=== PATIENT | female | born 1955 | race Caucasian/White ===

== ENCOUNTER 2016-09-20 12:02 | Outpatient (CLI) | payer OTHER | END 2016-09-20 12:03 | disposition home or self-care (01) | DX: J42 Unspecified chronic bronchitis (principal) ==

== ENCOUNTER 2016-11-22 10:51 | Outpatient (CLI) | payer OTHER | END 2016-11-22 10:52 | disposition home or self-care (01) | DX: R03.0 Elevated blood-pressure reading, without diagnosis of hypertension (principal); E78.2 Mixed hyperlipidemia ==

== ENCOUNTER 2017-04-09 13:35 | Outpatient (CLI) | payer OTHER ==
--- NOTE | 2017-04-10 10:07 | XRAY Report ---
CHEST, TWO VIEWS: 04/09/2017 HISTORY: Cough. COMPARISON: 09/20/2016 FINDINGS: Surgical clips right upper quadrant. Degenerative change in the spine. Heart size normal . Lungs are clear. Degenerative change in the shoulders. No pleural effusion or pneumothorax. IMPRESSION: NEGATIVE FOR ACUTE FINDINGS OR SIGNIFICANT CHANGE SINCE 09/20/2016. CLEAR LUNGS. JOB #: [id number] EXT JOB #:[id number]
== END 2017-04-09 13:36 | disposition home or self-care (01) ==
LOC: DI 13:35
PROVIDERS: ATTEND Nurse Practitioner Family
DX: R05 Cough (principal)
CPT/HCPCS: 71020

== ENCOUNTER 2017-06-09 20:27 | Outpatient (CLI) | payer OTHER ==
[2017-06-09 18:23] LABS: BASOPHILS # (AUTO) 0.1 10^3/uL (0.0-0.1); BASOPHILS % (AUTO) 0.7 %; EOSINOPHILS # (AUTO) 0.5 10^3/uL (0.0-0.7); EOSINOPHILS % (AUTO) 5.4 %; HCT - HEMATOCRIT 41.7 % (37.0-47.0); HGB - HEMOGLOBIN 13.7 g/dL (12.0-16.0); MEAN CORPUSCULAR HGB CONC 32.9 g/dL (32.0-36.0); MEAN CORPUSCULAR VOLUME 88.2 fL (81.0-99.0); MEAN PLATELET VOLUME 8.3 fL (7.9-10.8); MONOCYTES # (AUTO) 0.6 10^3/uL (0.0-1.0); MONOCYTES % (AUTO) 6.8 %; NEUTROPHILS # (AUTO) 5.7 10^3/uL (1.5-6.6); NEUTROPHILS % (AUTO) 64.1 %; RED BLOOD COUNT 4.73 10^6/uL (4.20-5.40); RED CELL DISTRIBUTION WIDTH 14.9 % (12.0-15.0); UNCORRECTED WHITE BLOOD COUNT 8.9 x10^3/uL; WHITE BLOOD COUNT 8.9 x10^3/uL (4.8-10.8)
[2017-06-09 18:59] LABS: THYROID STIMULATING HORMONE 1.84 uIU/mL (0.34-5.60)
[2017-06-09 19:00] LABS: BILIRUBIN,TOTAL 0.5 mg/dL (0.2-1.0); BUN - BLOOD UREA NITROGEN 14 mg/dL (6-20); CALCIUM 9.1 mg/dL (8.5-10.3); CARBON DIOXIDE - CO2 25 mmol/L (21-32); CHLORIDE 102 mmol/L (101-111); CHOL/HDL RATIO 3.9 (<4.4); CHOLESTEROL 215 mg/dL; CREATININE 0.7 mg/dL (0.4-1.0); GFR - MDRD 85 (>89); GLUCOSE 156 mg/dL (70-100); HDL CHOLESTEROL 55 mg/dL; LDL/HDL RATIO 2.4 (<4.4); POTASSIUM 3.7 mmol/L (3.5-5.0); SODIUM 138 mmol/L (135-145); TOTAL PROTEIN 7.5 g/dL (6.7-8.2); TRIGLYCERIDES 135 mg/dL; VLDL CHOLESTEROL 27 mg/dL
== END 2017-06-09 20:28 | disposition home or self-care (01) ==
LOC: LAB.S 20:27
PROVIDERS: ATTEND Nurse Practitioner Family
DX: Z86.79 Personal history of other diseases of the circulatory system (principal); E78.2 Mixed hyperlipidemia; E03.9 Hypothyroidism, unspecified
CPT/HCPCS: 36415; 80053; 80061; 84439; 84443; 85025

== ENCOUNTER 2017-06-11 07:42 | Outpatient (CLI) | payer OTHER | END 2017-06-11 07:43 | disposition critical access hospital (66) | LOC: EMS 07:42 | PROVIDERS: ATTEND Surgery | DX: R06.00 Dyspnea, unspecified (principal) | CPT/HCPCS: A0425; A0429 ==

== ENCOUNTER 2017-06-11 09:01 | Emergency (ER) | payer OTHER ==
[2017-06-11] MEDS ORDERED: BENZONATATE 100 MG CAPSULE PO STA (09:09)
[2017-06-11] MEDS ORDERED: guaiFENesin/DEXTROMETHORPHAN 10 ML UDC PO STA (09:09)
[2017-06-11] MEDS ORDERED: DEXAMETHASONE 10 MG/ML VIAL PO STA (09:09)
[2017-06-11] MEDS ORDERED: ALBUTEROL NEB 2.5 MG/3 ML INH STA (09:09)
--- NOTE | 2017-06-11 09:23 | ED Physician Documentation ---
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 and improved Review of Systems Constitutional: denies: Fever, Chills Cardiac: denies: Chest pain / pressure Respiratory: reports: Dyspnea, Cough, Wheezing Musculoskeletal: denies: Extremity swelling Endocrine: denies: Easy bruising / bleeding Immunocompromised: denies: Immunocompromised PD PAST MEDICAL HISTORY - Past Surgical History General: Cholecystectomy Ortho: Carpal Tunnel surgery - Present Medications Home Medications: Ambulatory Orders Medication Instructions Recorded Confirmed Cetirizine HCl [Zyrtec] 10 mg PO DAILY 04/04/16 06/11/17 Venlafaxine [Effexor] 150 mg PO DAILY 04/04/16 06/11/17 Azithromycin 250 mg PO DAILY 06/11/17 06/11/17 Benzonatate [Tessalon Perle] 100 mg PO DAILY 06/11/17 06/11/17 Benzonatate [Tessalon] 100 mg PO TID PRN #20 capsule 06/11/17 Fluticasone [Flonase] 1 sprays ANGELICA BID 06/11/17 06/11/17 guaiFENesin/DEXTROMETHORPHAN 10 ml PO Q6H PRN #120 ml 06/11/17 [Robitussin Dm] predniSONE [Deltasone] 60 mg PO DAILY 5 Days tablet 06/11/17 - Allergies Allergies/Adverse Reactions: Allergies Allergy/AdvReac Type Severity Reaction Status Date / Time codeine Allergy Unknown Verified 04/04/16 10:36 iodine Allergy Unknown Verified 06/11/17 09:16 - Social History Does the pt smoke?: No Smoking Status: Never smoker PD ED PE NORMAL - Vitals Vital signs reviewed: Yes - Cardiac Cardiac: RRR - Respiratory Respiratory: Other (kayley wheezing, squeeky ronchi R base) - Abdomen Abdomen: Soft, Non tender - Extremities Extremities: No tenderness to palpate, Normal ROM s pain, No edema, No calf tenderness / cord - Neuro Neuro: Alert and oriented X 3 Results - Vitals Vitals: Vital Signs - 24 hr 06/11/17 06/11/17 06/11/17 09:03 10:35 10:59 Temperature 36.6 C Heart Rate 106 H 102 H 96 Respiratory 22 18 20 Rate Blood Pressure 119/82 H 128/80 118/73 O2 Saturation 96 100 98 06/11/17 06/11/17 11:39 12:27 Temperature 36.9 C Heart Rate 94 104 H Respiratory 18 18 Rate Blood Pressure 117/76 133/76 H O2 Saturation 97 98 Oxygen O2 Source Room air - Rads (name of study) CXR Radiology: See rad report (NACPD) PD MEDICAL DECISION MAKING - ED course ED course: after steroids nebs and some time, pt much better, lungs clear, ambulating with sat > 95% just exhausted and wants to go home and get some sleep - was up all night coughing HR noted and felt due to neb use Departure - Departure Disposition: 01 Home, Self Care Clinical Impression: Reactive airway disease Qualifiers: Asthma severity: unspecified severity Asthma persistence: unspecified Asthma complication type: with acute exacerbation Qualified Code(s): J45.901 - Unspecified asthma with (acute) exacerbation Condition: Good Instructions: ED Reactive Airway Disease, Inhaler W Spacer Follow-Up: Carolyne Traylor ARNP [Primary Care Provider] - Prescriptions: Benzonatate [Tessalon] 100 mg PO TID PRN #20 capsule PRN Reason: to ease cough guaiFENesin/DEXTROMETHORPHAN [Robitussin Dm] 10 ml PO Q6H PRN #120 ml PRN Reason: Cough predniSONE [Deltasone] 60 mg PO DAILY 5 Days tablet Comments: Use your albuterol with the spacer every 4 hr for the next three days, then may decreases frequency to as needed Take the steroids for 5 days - next dose tomorrow Tessalon and robitussin DM to ease the cough Follow up with your PMD next week and pulmonology when the referral goes through Return if worse Forms: Activity restrictions
[2017-06-11] MEDS ORDERED: BENZONATATE 100 MG CAPSULE PO ONE (09:28)
[2017-06-11] MEDS ORDERED: guaiFENesin/DEXTROMETHORPHAN 10 ML UDC ONE (09:28)
[2017-06-11] MEDS ORDERED: DEXAMETHASONE 10 MG/ML VIAL ONE (09:30)
[2017-06-11] MEDS ORDERED: CHERRY SYRUP 10 ML UDC PO ONE (09:31)
--- NOTE | 2017-06-11 09:38 | XRAY Preliminary Report ---
Exam: XR CHEST 2 VIEW PA/LAT IMPRESSION: Normal for age. No change from 04/09/2017. [facility] SITE ID: [id number]
--- NOTE | 2017-06-11 09:41 | XRAY Report ---
EXAM: CHEST RADIOGRAPHY 2 VIEWS EXAM DATE: 06/11/2017. CLINICAL HISTORY: Cough. Right lung rhonchi. COMPARISON: 04/09/2017. TECHNIQUE: PA and lateral views. FINDINGS: Lungs/Pleura: Normal vasculature. Lungs are clear. No pleural fluid or pneumothorax. Mediastinum: Normal cardiac and mediastinal contours. Bones: Degenerative changes of the spine and shoulders. No acute abnormality. IMPRESSION: Normal for age. No change from 04/09/2017. [facility] Referring Provider Line: [phone] SITE ID: [id number]
[2017-06-11] MEDS ORDERED: ALBUTEROL NEB 2.5 MG/3 ML INH ONE ×2 (09:53→09:58)
[2017-06-11 12:31] VITALS: BP 133/76
== END 2017-06-11 13:34 | disposition home or self-care (01) ==
LOC: EDUNIT# → ED 09:01
DX: J45.901 Unspecified asthma with (acute) exacerbation (principal); E78.2 Mixed hyperlipidemia; E03.9 Hypothyroidism, unspecified; Z86.79 Personal history of other diseases of the circulatory system
CPT/HCPCS: 36415; 71020; 80053; 80061; 84439; 84443; 85025; 94664; 99283; A9270; J7613

== ENCOUNTER 2017-06-11 10:44 | Outpatient (CLI) | payer OTHER ==
[2017-06-11 11:09] LABS: BASOPHILS % (AUTO) 0.3 %; EOSINOPHILS # (AUTO) 0.2 10^3/uL (0.0-0.7); EOSINOPHILS % (AUTO) 1.4 %; HCT - HEMATOCRIT 41.7 % (37.0-47.0); HGB - HEMOGLOBIN 14.2 g/dL (12.0-16.0); LYMPHOCYTES # (AUTO) 2.2 10^3/uL (1.5-3.5); LYMPHOCYTES % (AUTO) 16.1 %; MEAN CORPUSCULAR HEMOGLOBIN 29.1 pg (27.0-31.0); MEAN CORPUSCULAR HGB CONC 34.1 g/dL (32.0-36.0); MEAN CORPUSCULAR VOLUME 85.3 fL (81.0-99.0); MEAN PLATELET VOLUME 7.3 fL (7.9-10.8); MONOCYTES # (AUTO) 0.8 10^3/uL (0.0-1.0); MONOCYTES % (AUTO) 6.1 %; NEUTROPHILS # (AUTO) 10.3 10^3/uL (1.5-6.6); NEUTROPHILS % (AUTO) 76.1 %; RED BLOOD COUNT 4.89 10^6/uL (4.20-5.40); RED CELL DISTRIBUTION WIDTH 15.1 % (12.0-15.0); UNCORRECTED WHITE BLOOD COUNT 13.6 x10^3/uL; WHITE BLOOD COUNT 13.6 x10^3/uL (4.8-10.8)
[2017-06-11 11:25] LABS: ALBUMIN/GLOBULIN RATIO 0.8 (1.0-2.2); BILIRUBIN,TOTAL 0.7 mg/dL (0.2-1.0); BUN - BLOOD UREA NITROGEN 17 mg/dL (6-20); CALCIUM 9.1 mg/dL (8.5-10.3); CARBON DIOXIDE - CO2 24 mmol/L (21-32); CHLORIDE 101 mmol/L (101-111); CHOL/HDL RATIO 3.9 (<4.4); CHOLESTEROL 218 mg/dL; CREATININE 0.8 mg/dL (0.4-1.0); GFR - MDRD 72 (>89); GLUCOSE 179 mg/dL (70-100); HDL CHOLESTEROL 56 mg/dL; LDL/HDL RATIO 2.4 (<4.4); POTASSIUM 3.7 mmol/L (3.5-5.0); SODIUM 138 mmol/L (135-145); TOTAL PROTEIN 7.6 g/dL (6.7-8.2); TRIGLYCERIDES 131 mg/dL; VLDL CHOLESTEROL 26 mg/dL
[2017-06-11 12:54] LABS: THYROID STIMULATING HORMONE 1.17 uIU/mL (0.34-5.60)
== END 2017-06-11 10:45 | disposition home or self-care (01) ==
LOC: LAB 10:44
PROVIDERS: ATTEND Nurse Practitioner Family
DX: Z86.79 Personal history of other diseases of the circulatory system (principal); E78.2 Mixed hyperlipidemia; E03.9 Hypothyroidism, unspecified
CPT/HCPCS: 36415; 80053; 80061; 84439; 84443; 85025

== ENCOUNTER 2017-06-16 10:44 | Outpatient (CLI) | payer OTHER ==
[2017-06-16 18:50] LABS: HEMOGLOBIN A1C 0.81 g/dL
== END 2017-06-16 10:45 | disposition home or self-care (01) ==
LOC: LAB.S 10:44
PROVIDERS: ATTEND Nurse Practitioner Family
DX: R73.9 Hyperglycemia, unspecified (principal)
CPT/HCPCS: 36415; 82947; 83036

== ENCOUNTER 2017-06-17 13:24 | Outpatient (CLI) | payer OTHER ==
[2017-06-17] MEDS ORDERED: ALBUTEROL NEB 2.5 MG/3 ML INH ONE ×2 (14:00→15:19)
== END 2017-06-17 13:25 | disposition home or self-care (01) ==
LOC: RT 13:24
PROVIDERS: ATTEND Nurse Practitioner Family
DX: J42 Unspecified chronic bronchitis (principal)
CPT/HCPCS: 94060; 94729; J7613

== ENCOUNTER 2017-08-02 19:30 | Outpatient (CLI) | payer OTHER | END 2017-08-02 19:31 | disposition critical access hospital (66) | LOC: EMS 19:30 | PROVIDERS: ATTEND Surgery | DX: R06.00 Dyspnea, unspecified (principal); R05 Cough | CPT/HCPCS: A0425; A0429 ==

== ENCOUNTER 2017-08-02 20:11 | Emergency (ER) | payer OTHER ==
[2017-08-02] MEDS ORDERED: DEXAMETHASONE 10 MG/ML VIAL IVP STA (20:24)
[2017-08-02] MEDS ORDERED: SODIUM CHLORIDE 0.9% 1,000 ML IV ONE (20:24)
--- NOTE | 2017-08-02 20:27 | ED Physician Documentation ---
PD HPI DYSPNEA - Stated complaint Stated Complaint: COUGH, SOA - Chief complaint Chief Complaint: Resp - History obtained from History obtained from: Patient, Family, EMS - History of Present Illness Timing - onset: How many months ago (3) Timing - onset during: Rest Timing - duration: Months (3) Timing - details: Gradual onset, Waxing and waning Inciting event(s): URI, Allergic rxn/anaphylaxis Improved by: Inhaler/neb Worsened by: Coughing, Allergens Associated symptoms: Cough, Wheezing, Diaphoresis Similar symptoms before: Has not had sx before Recently seen: Clinic - Additional information Additional information: 61-year-old female with a history of allergic asthma and new onset type 2 diabetes has developed a cough for the past 3 months that is been unrelenting. 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 She has continued to have some issue with asthma despite moving out of this building for work and this past week her sputum changed from clear to colored. She made an appointment with her doctor and she has been started on some Tessalon as well. She has been diagnosed with bronchitis. This evening she was unable to catch her breath she repeatedly used her inhaler and became diaphoretic and called 911. Review of Systems Constitutional: reports: Sweats. denies: Fever Eyes: denies: Decreased vision Ears: denies: Ear pain Nose: reports: Rhinorrhea / runny nose, Congestion Throat: denies: Sore throat Cardiac: denies: Chest pain / pressure, Palpitations Respiratory: reports: Dyspnea, Cough, Wheezing GI: denies: Abdominal Pain, Nausea, Vomiting : reports: Frequency. denies: Dysuria Musculoskeletal: denies: Neck pain, Back pain Neurologic: denies: Generalized weakness, Focal weakness, Numbness PD PAST MEDICAL HISTORY - Past Medical History Past Medical History: Yes Respiratory: Asthma Other Past Medical History: Recently DX w/ Bronchitis - Past Surgical History Past Surgical History: Yes General: Cholecystectomy Ortho: Carpal Tunnel surgery - Present Medications Home Medications: Ambulatory Orders Medication Instructions Recorded Confirmed Venlafaxine [Effexor] 150 mg PO DAILY 04/04/16 08/02/17 Benzonatate [Tessalon Perle] 100 mg PO DAILY 06/11/17 08/02/17 Albuterol Sulf [Ventolin Hfa 1 puffs INH QID PRN 08/02/17 08/02/17 Inhaler] Atorvastatin Calcium [Lipitor] 40 mg PO DAILY 08/02/17 08/02/17 Azithromycin [Zithromax] 250 mg PO DAILY #6 tablet 08/02/17 Budesonide [Rhinocort Aqua] 1 sprays ANGELICA DAILY 08/02/17 08/02/17 Oxymetazoline HCl [Nasal [place]] 30 ml NS DAILY 08/02/17 08/02/17 metFORMIN [Glucophage] 1 tab PO DAILY 08/02/17 08/02/17 - Allergies Allergies/Adverse Reactions: Allergies Allergy/AdvReac Type Severity Reaction Status Date / Time codeine Allergy Unknown Verified 08/02/17 20:18 iodine Allergy Unknown Verified 08/02/17 20:18 - Social History Does the pt smoke?: No Smoking Status: Never smoker Does the pt drink ETOH?: No Does the pt have substance abuse?: No - Immunizations Immunizations are current?: Yes PD ED PE NORMAL - Vitals Vital signs reviewed: Yes (Tachycardic tachypneic and hypertensive) - General General: Alert and oriented X 3, Well developed/nourished, Other (The patient appears dyspneic with albuterol running continuously and she is diaphoretic.) - HEENT HEENT: Atraumatic, PERRL, EOMI, Ears normal, Other (Dry mucous membranes) - Neck Neck: Supple, no meningeal sign, No bony TTP - Cardiac Cardiac: No murmur, Other (Tachycardic to 110) - Respiratory Respiratory: Other (Tachypnea with rhonchorous left midlung field sounds and transmitted sounds throughout the lung scanlon.) - Abdomen Abdomen: Soft, Non tender - Back Back: No CVA TTP, No spinal TTP - Derm Derm: Normal color, No rash, Other (Diaphoretic) - Neuro Neuro: Alert and oriented X 3, final assembler 2-12 intact, No motor deficit, No sensory deficit, Normal speech Eye Opening: Spontaneous Motor: Obeys Commands Verbal: Oriented GCS Score: 15 - Psych Psych: Normal mood, Normal affect Results - Vitals Vitals: Vital Signs - 24 hr 08/02/17 08/02/17 08/02/17 20:12 21:27 22:01 Temperature 36.4 C L Heart Rate 105 H 94 91 Respiratory 26 H 18 18 Rate Blood Pressure 142/92 H 145/92 H 155/66 H O2 Saturation 100 96 96 08/02/17 08/02/17 08/03/17 22:48 23:22 00:11 Temperature 37.1 C Heart Rate 102 H 101 H 102 H Respiratory 28 H 22 22 Rate Blood Pressure 159/92 H 176/76 H O2 Saturation 95 95 Oxygen O2 Source Room air - Labs Labs: Laboratory Tests 08/02/17 08/02/17 08/02/17 20:41 20:41 20:41 WBC 12.4 H RBC 4.52 Hgb 13.0 Hct 39.3 MCV 86.8 MCH 28.7 MCHC 33.1 RDW 14.4 Plt Count 219 MPV 7.8 L Neut # 7.6 H Lymph # 3.1 [place] # 0.9 Eos # 0.8 H Baso # 0.1 Absolute Nucleated RBC 0.00 Nucleated RBC % 0.0 Sodium 141 Potassium 3.9 Chloride 103 Carbon Dioxide 23 Anion Gap 15.0 H BUN 17 Creatinine 0.6 Estimated GFR (MDRD) 101 Glucose 209 H Calcium 9.2 Total Bilirubin 0.5 AST 39 ALT 24 Alkaline Phosphatase 95 Troponin I < 0.04 Total Protein 7.6 Albumin 3.6 Globulin 4.0 Albumin/Globulin Ratio 0.9 L Lipase 34 Urine Color Urine Clarity Urine pH Ur Specific [employer] Urine Protein Urine Glucose (UA) Urine Ketones Urine Occult Blood Urine Nitrite Urine Bilirubin Urine Urobilinogen Ur Leukocyte Esterase Ur Microscopic Review Urine Culture Comments 08/02/17 22:09 WBC RBC Hgb Hct MCV MCH MCHC RDW Plt Count MPV Neut # Lymph # [place] # Eos # Baso # Absolute Nucleated RBC Nucleated RBC % Sodium Potassium Chloride Carbon Dioxide Anion Gap BUN Creatinine Estimated GFR (MDRD) Glucose Calcium Total Bilirubin AST ALT Alkaline Phosphatase Troponin I Total Protein Albumin Globulin Albumin/Globulin Ratio Lipase Urine Color YELLOW Urine Clarity CLEAR Urine pH 5.5 Ur Specific [employer] >=1.030 H Urine Protein NEGATIVE Urine Glucose (UA) NEGATIVE Urine Ketones NEGATIVE Urine Occult Blood NEGATIVE Urine Nitrite NEGATIVE Urine Bilirubin NEGATIVE Urine Urobilinogen 0.2 (NORMAL) Ur Leukocyte Esterase NEGATIVE Ur Microscopic Review NOT INDICATED Urine Culture Comments NOT INDICATED - Rads (name of study) 2 view chest Radiology: Prelim report reviewed (Impression: 1. No consolidation. Bronchial wall thickening noted. Findings are nonspecific but could be related to bronchitis or reactive airway disease. 2. No pneumothorax or effusions.), EMP read indepedently (On my read in comparison to her recent chest x-ray she has subtle infiltrate in the right base. She has a film today on dry lungs with this finding and in comparison to a prior film where she was well hydrated this appearance stands out today.), See rad report Procedures - IVC sono (time) 2019 Bedside IVC sono: IVC measures (cm) (0.97), IVC collapsed c insp (cm) (complete) , Dehydration (est 1.5 liter deficiet) PD MEDICAL DECISION MAKING - ED course Complexity details: reviewed old records, reviewed results, re-evaluated patient , considered differential, d/w patient, d/w family ED course: 61-year-old female with increasing reactive airway disease symptoms over the past year has an uncontrollable cough and shortness of breath and on arrival to the emergency department she appears to be in some distress. She is a type II diabetic and diaphoretic her volume status is checked with the bedside ultrasound and interrogation of the inferior vena cava and demonstrates a volume deficit of approximately 1.5 L. IV is begun she is given saline and dexamethasone and a chest x-ray is ordered. The chest x-ray has some subtle findings patient's white blood cell count is mildly elevated and she is treated with intravenous Rocephin. Her blood sugar is 209 here in the emergency department and this is likely contributing to her dehydration. Departure - Departure Disposition: 01 Home, Self Care Clinical Impression: Dehydration Reactive airway disease Qualifiers: Asthma severity: mild Asthma persistence: intermittent Asthma complication type : with acute exacerbation Qualified Code(s): J45.21 - Mild intermittent asthma with (acute) exacerbation Pneumonia Qualifiers: Pneumonia type: due to unspecified organism Laterality: right Lung location: lower lobe of lung Qualified Code(s): J18.1 - Lobar pneumonia, unspecified organism Condition: Stable Instructions: ED Bronchitis Asthmatic, ED Dehydration, ED Pneumonia Adult Follow-Up: Carolyne Traylor ARNP [Primary Care Provider] - Prescriptions: Azithromycin [Zithromax] 250 mg PO DAILY #6 tablet Forms: Activity restrictions
[2017-08-02 20:47] LABS: BASOPHILS # (AUTO) 0.1 10^3/uL (0.0-0.1); BASOPHILS % (AUTO) 0.6 %; EOSINOPHILS # (AUTO) 0.8 10^3/uL (0.0-0.7); EOSINOPHILS % (AUTO) 6.7 %; LYMPHOCYTES # (AUTO) 3.1 10^3/uL (1.5-3.5); LYMPHOCYTES % (AUTO) 24.8 %; MEAN CORPUSCULAR HEMOGLOBIN 28.7 pg (27.0-31.0); MEAN CORPUSCULAR HGB CONC 33.1 g/dL (32.0-36.0); MEAN CORPUSCULAR VOLUME 86.8 fL (81.0-99.0); MEAN PLATELET VOLUME 7.8 fL (7.9-10.8); MONOCYTES # (AUTO) 0.9 10^3/uL (0.0-1.0); MONOCYTES % (AUTO) 6.9 %; NEUTROPHILS # (AUTO) 7.6 10^3/uL (1.5-6.6); PLT - PLATELET COUNT 219 10^3/uL (130-450); RED BLOOD COUNT 4.52 10^6/uL (4.20-5.40); RED CELL DISTRIBUTION WIDTH 14.4 % (12.0-15.0); WHITE BLOOD COUNT 12.4 x10^3/uL (4.8-10.8)
[2017-08-02] MEDS ORDERED: cefTRIAXone 1 GM in SODIUM CHLORIDE 0.9% MINIBAG 100 ML IV STA (20:58)
[2017-08-02 21:02] LABS: ALBUMIN 3.6 g/dL (3.2-5.5); ALBUMIN/GLOBULIN RATIO 0.9 (1.0-2.2); BILIRUBIN,TOTAL 0.5 mg/dL (0.2-1.0); CALCIUM 9.2 mg/dL (8.5-10.3); CREATININE 0.6 mg/dL (0.4-1.0); TOTAL PROTEIN 7.6 g/dL (6.7-8.2)
--- NOTE | 2017-08-02 21:11 | XRAY Preliminary Report ---
Exam: XR CHEST 2 VIEW X-RAY IMPRESSION: 1. No consolidation. Bronchial wall thickening noted. Findings are nonspecific but could be related t o bronchitis or reactive airways disease. 2. No pneumothorax or effusions. [facility] SITE ID: [id number]
--- NOTE | 2017-08-02 21:13 | XRAY Report ---
EXAM: CHEST RADIOGRAPHY EXAM DATE: 08/02/2017 08:50 PM. CLINICAL HISTORY: Cough, left base rhonchi, shortness of air. COMPARISON: 06/11/2017. TECHNIQUE: 2 views. FINDINGS: Lungs/Pleura: No focal opacities evident. No pleural effusion. No pneumothorax. Normal volumes. Bronc hial wall thickening is noted. Mediastinum: Heart and mediastinal contours are unremarkable. Other: None. IMPRESSION: 1. No consolidation. Bronchial wall thickening noted. Findings are nonspecific but could be related t o bronchitis or reactive airway disease. 2. No pneumothorax or effusions. [facility] Referring Provider Line: [phone] SITE ID: [id number]
[2017-08-02 22:29] LABS: BILIRUBIN,URINE NEGATIVE (NEGATIVE); GLUCOSE, URINE (UA) NEGATIVE (NEGATIVE); KETONES,URINE (UA) NEGATIVE (NEGATIVE); LEUKOCYTE ESTERASE, URINE NEGATIVE (NEGATIVE); NITRITE,URINE NEGATIVE (NEGATIVE); OCCULT BLOOD,URINE NEGATIVE (NEGATIVE); PH,URINE 5.5 PH (5.0-7.5); PROTEIN,URINE NEGATIVE (NEGATIVE); UROBILINOGEN,URINE 0.2 (NORMAL) E.U./dL (NORMAL)
[2017-08-02 22:31] LABS: CLARITY,URINE CLEAR (CLEAR)
[2017-08-02] MEDS ORDERED: ALBUTEROL NEB 2.5 MG/3 ML INH STA (22:38)
[2017-08-02] MEDS ORDERED: BENZONATATE 100 MG CAPSULE PO STA (23:16)
[2017-08-02] MEDS ORDERED: guaiFENesin/DEXTROMETHORPHAN 10 ML UDC PO STA (23:21)
[2017-08-03 00:11] VITALS: BP 176/76
== END 2017-08-03 00:22 | disposition home or self-care (01) ==
LOC: EDUNIT# → ED 20:11
DX: E86.0 Dehydration (principal); J45.21 Mild intermittent asthma with (acute) exacerbation; J18.9 Pneumonia, unspecified organism; E11.9 Type 2 diabetes mellitus without complications
CPT/HCPCS: 36415; 71046; 80053; 81003; 83690; 84484; 85025; 94640; 96361; 96365; 96375; 99284; A9270; J7613; 81001; 87086

== ENCOUNTER 2017-08-11 09:56 | Outpatient (CLI) | payer OTHER ==
[2017-08-11 18:17] LABS: ALBUMIN 3.4 g/dL (3.2-5.5); ALKALINE PHOSPHATASE 92 IU/L (42-121); ALT ALANINE AMINOTRANSFERASE 26 IU/L (10-60); AST ASPARTATE AMINOTRANSFERASE 27 IU/L (10-42); BILIRUBIN,DIRECT 0.1 mg/dL (0.1-0.5); BILIRUBIN,TOTAL 0.8 mg/dL (0.2-1.0); CHOLESTEROL 144 mg/dL; HDL CHOLESTEROL 58 mg/dL; LDL CHOLESTEROL,CALCULATED 62 mg/dL; TOTAL PROTEIN 7.1 g/dL (6.7-8.2); VLDL CHOLESTEROL 24 mg/dL
[2017-08-11 18:18] LABS: CHOL/HDL RATIO 2.5 (<4.4); LDL/HDL RATIO 1.1 (<4.4)
[2017-08-11 18:32] LABS: CREATININE,URINE 196.2 mg/dL; MICROALBUM/CREATININE RATIO,UR 2.5 ug/mg (<30.0); MICROALBUMIN,URINE 0.5 mg/dL (0-300.0)
== END 2017-08-11 09:57 | disposition home or self-care (01) ==
LOC: LAB.S 09:56
PROVIDERS: ATTEND Nurse Practitioner Family
DX: E78.2 Mixed hyperlipidemia (principal); E11.9 Type 2 diabetes mellitus without complications
CPT/HCPCS: 36415; 80061; 80076; 82043; 82570; 83721

== ENCOUNTER 2017-10-03 09:45 | Outpatient (CLI) | payer OTHER ==
[2017-10-03 18:06] LABS: HB2 TOTAL 13.6 g/dL; HEMOGLOBIN A1C 0.66 g/dL; HEMOGLOBIN A1C % 6.6 % (4.6-6.2)
== END 2017-10-03 09:46 | disposition home or self-care (01) ==
LOC: LAB.F 09:45
PROVIDERS: ATTEND Nurse Practitioner Family
DX: E11.9 Type 2 diabetes mellitus without complications (principal)
CPT/HCPCS: 36415; 83036

== ENCOUNTER 2018-03-20 09:13 | Outpatient (CLI) | payer OTHER ==
[2018-03-20 17:33] LABS: BASOPHILS # (AUTO) 0.1 10^3/uL (0.0-0.1); BASOPHILS % (AUTO) 0.8 %; EOSINOPHILS # (AUTO) 0.5 10^3/uL (0.0-0.7); EOSINOPHILS % (AUTO) 6.2 %; HGB - HEMOGLOBIN 13.4 g/dL (12.0-16.0); LYMPHOCYTES # (AUTO) 2.7 10^3/uL (1.5-3.5); LYMPHOCYTES % (AUTO) 34.1 %; MEAN CORPUSCULAR HEMOGLOBIN 29.7 pg (27.0-31.0); MEAN CORPUSCULAR HGB CONC 33.7 g/dL (32.0-36.0); MEAN CORPUSCULAR VOLUME 88.1 fL (81.0-99.0); MEAN PLATELET VOLUME 8.7 fL (7.9-10.8); MONOCYTES # (AUTO) 0.7 10^3/uL (0.0-1.0); MONOCYTES % (AUTO) 8.2 %; NEUTROPHILS % (AUTO) 50.7 %; PLT - PLATELET COUNT 216 10^3/uL (130-450); RED BLOOD COUNT 4.53 10^6/uL (4.20-5.40); RED CELL DISTRIBUTION WIDTH 14.7 % (12.0-15.0)
[2018-03-20 17:51] LABS: ALBUMIN 3.5 g/dL (3.2-5.5); ALBUMIN/GLOBULIN RATIO 0.8 (1.0-2.2); ALKALINE PHOSPHATASE 110 IU/L (42-121); ALT ALANINE AMINOTRANSFERASE 71 IU/L (10-60); AST ASPARTATE AMINOTRANSFERASE 66 IU/L (10-42); BILIRUBIN,TOTAL 0.9 mg/dL (0.2-1.0); BUN - BLOOD UREA NITROGEN 21 mg/dL (6-20); CARBON DIOXIDE - CO2 30 mmol/L (21-32); CHLORIDE 100 mmol/L (101-111); CHOL/HDL RATIO 2.7 (<4.4); CHOLESTEROL 136 mg/dL; CREATININE 0.7 mg/dL (0.4-1.0); GFR - MDRD 84 (>89); GLUCOSE 112 mg/dL (70-100); HDL CHOLESTEROL 51 mg/dL; LDL CHOLESTEROL,CALCULATED 68 mg/dL; LDL/HDL RATIO 1.3 (<4.4); SODIUM 136 mmol/L (135-145); TOTAL PROTEIN 7.8 g/dL (6.7-8.2); VLDL CHOLESTEROL 17 mg/dL
[2018-03-20 18:09] LABS: HB2 TOTAL 14.5 g/dL; HEMOGLOBIN A1C 0.68 g/dL; HEMOGLOBIN A1C % 6.4 % (4.6-6.2)
== END 2018-03-20 09:14 | disposition home or self-care (01) ==
LOC: LAB.F 09:13
PROVIDERS: ATTEND Nurse Practitioner Family
DX: E11.9 Type 2 diabetes mellitus without complications (principal); E78.2 Mixed hyperlipidemia
CPT/HCPCS: 36415; 80053; 80061; 82043; 83036; 83721; 84443; 85025